=== PATIENT | female | born 2000 | race Two or more races ===

== ENCOUNTER 2019-03-21 13:05 | Emergency (ER) | payer MEDICAID ==
[~2019-03-21] VITALS: Ht 165.1 cm; Wt 56.0 kg
[2019-03-21 14:45] VITALS: BP 158/98
[2019-03-21] MEDS ORDERED: KETOROLAC 30MG/ML VIAL IM ONE (14:45)
== END 2019-03-21 15:13 | disposition home or self-care (01) ==
LOC: ER 13:05
DX: S10.83XA Contusion of other specified part of neck, initial encounter (principal); S30.0XXA Contusion of lower back and pelvis, initial encounter; V49.49XA Driver injured in collision with other motor vehicles in traffic accident, initial encounter; Y93.89 Activity, other specified; Y92.89 Other specified places as the place of occurrence of the external cause; Y99.8 Other external cause status
CPT/HCPCS: 81025; 96372; 99283; J1885